=== PATIENT | male | born 1985 | race Caucasian/White ===

== ENCOUNTER 2018-05-23 08:20 | Day surgery (SDC) | payer OTHER ==
--- NOTE | 2018-05-20 11:12 | HP ---
PREOPERATIVE HISTORY AND PHYSICAL EXAM: DATE OF SURGERY/ADMISSION: 05/23/18 [facility] DATE OF OFFICE VISIT/ENCOUNTER: 05/14/18 ATTENDING SURGEON: Aleah Capone MD * (DICTATED BY CANDACE COSME) PROCEDURE: Right wrist ganglion excision. CHIEF COMPLAINT: Cyst, right wrist. 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 He complains of a painful lump on the dorsal aspect of his right wrist. It has been present for approximately 3 years. It has recently become more bothersome in the past 2 months. He did recently have the cyst aspirated, which was followed by a cortisone injection; however, the cyst returned very shortly after that. He is interested in now having it surgically removed. PAST MEDICAL HISTORY: POLLEN allergies. PAST SURGICAL HISTORY: [place] teeth extraction. CURRENT MEDICATIONS: 1. Fluticasone propionate 50 mcg 2 sprays each nostril daily. 2. Ibuprofen 200 mg as needed. ALLERGIES: WARFARIN, the patient reports a genetic predisposition of sensitivity. FAMILY MEDICAL HISTORY: Noncontributory. 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 He denies tobacco use. He does smoke marijuana on a rare occasion and drinks alcohol on occasional approximately once a week. REVIEW OF SYSTEMS: General: Negative for fevers, chills, night sweats, unexplained weight loss/gain. No known anesthesia problems in the past. HEENT : Negative for headache, lightheadedness, syncopal episodes, visual changes. Integumentary: Negative for abrasions, lesions, open wounds. Cardiothoracic: Negative for hypertension, chest pain, palpitations, edema. Respiratory: Negative for shortness of breath with exertion, chronic cough, wheezing. GI: Negative for nausea, vomiting, diarrhea, constipation, GERD. : Negative for nocturia, urinary frequency, urgency, history of UTIs, kidney problems. Musculoskeletal: Positive for current complaint. Negative for chronic or intermittent back pain or history of fractures. Neurological: Negative for paresthesias, numbness, history of seizure, stroke, or poor balance. Endocrine : Negative for diabetes and thyroid issues. Hematologic: Negative for easy bruising, anemia, bleeding disorders, history of DVT. Infectious Disease: Negative for history of MRSA, hepatitis C, HIV. PHYSICAL EXAMINATION GENERAL: Well-developed, well-nourished 32-year-old male, in no acute distress. VITAL SIGNS: Height 5 feet 6 inches, weight 136 pounds, pulse rate 80, blood pressure 128/74. HEENT: Normocephalic, atraumatic. Pupils are equal, round, and reactive to light and accommodation. Throat is clear. NECK: Supple. No palpable lymph nodes. PULMONARY: Lungs are clear to auscultation bilaterally. No wheezes, rales, or rhonchi. CARDIOVASCULAR: Regular rate and rhythm. S1, S2. No murmurs, rubs, or gallops. No edema. ABDOMEN: Positive bowel sounds. Soft, nontender. MUSCULOSKELETAL: On exam of his right wrist, he has a 1 cm diameter mass on the dorsal aspect of the right radiocarpal joint. It is mildly tender to palpation. He has full range of motion of the wrist. Skin is intact. Neurovascular function is intact. NEUROLOGIC: Alert and oriented x3. Cranial nerves II through XII are intact. Sensation is intact to light touch. DIAGNOSTIC STUDIES: X-rays of the right wrist AP, lateral, and oblique appear normal. IMPRESSION: Right wrist dorsal ganglion cyst. PLAN: The patient is scheduled to undergo a right wrist ganglion cyst excision with Dr. Capone on 05/23/18. He will return to the office in days postop for followup and suture removal. A prescription for Ultracet was e-scribed to the patient's pharmacy for postoperative pain management. CANDACE COSME [id number]/[facility] #: [id number] KENIA
[~2018-05-23 08:20] MED LIST: Lidocaine 1% INJ* 10 MG/ML 30 ML SDV ONE
[2018-05-23] MEDS ORDERED: fentaNYL* 50 MCG/ML 2 ML VIAL (100 MCG VIAL) ONE (09:04)
[2018-05-23] MEDS ORDERED: Midazolam* 1 MG/ML 5 ML VIAL (5 MG) ONE (09:04)
[2018-05-23] MEDS ORDERED: Naloxone* 0.4 MG/ML 1 ML VIAL IV PRN (10:25)
[2018-05-23] MEDS ORDERED: DiMENhydriNATE IV* 50 MG/ML VIAL IV PUSH PRN (10:25)
[2018-05-23] MEDS ORDERED: Acetaminophen TAB* 325 MG PO PRN (10:25)
[2018-05-23] MEDS ORDERED: Ketorolac INJ* 30 MG/ML 1 ML VIAL ONE (10:48)
[2018-05-23] MEDS ORDERED: Lidocaine 2% PF * 5 ML VIAL ONE (10:48)
[2018-05-23] MEDS ORDERED: Ondansetron INJ* 2 MG/ML VIAL ONE (10:48)
[2018-05-23] MEDS ORDERED: Propofol* 10 MG/ML 20 ML BTL IV PUSH ONE (10:48)
[2018-05-23 12:09] VITALS: BP 105/70
--- NOTE | 2018-05-24 03:56 | OP ---
ADDENDUM NOW INCLUDED ON THIS REPORT DATE OF OPERATION: 05/23/18 - [facility] DATE OF : [birth year] SURGEON: Aleah Capone MD MANAGER OF HUMAN RESOURCES: CANDACE Demarco ANESTHESIA: Local MAC. PRE-OP DIAGNOSIS: Right dorsal wrist ganglion. POST-OP DIAGNOSIS: Right dorsal wrist ganglion. OPERATIVE PROCEDURE: Right dorsal wrist ganglion excision. ESTIMATED BLOOD LOSS: Zero. TOURNIQUET TIME: Approximately 10 minutes. INDICATIONS FOR PROCEDURE: Miles is a 32-year-old male with a painful mass over the dorsal aspect of his right wrist. The mass was aspirated and injected with cortisone for surgical excision. DESCRIPTION OF PROCEDURE: The patient was brought to the operating room, was given a sedation anesthetic and a local infiltration of 10 cc of 1% plain lidocaine overlying the right wrist mass. The skin of his right hand and forearm was prepped and draped in the usual sterile fashion. The hand and forearm were exsanguinated and the tourniquet elevated to 250 mmHg. A transverse incision was made centered over the mass and dissected bluntly through the subcutaneous tissue into the ganglion cyst, which was emanated from the bursa with emanating from the scapholunate ligament. dorsal aspect of the scapholunate ligament and the mass was sent to Pathology. The wound was irrigated and the skin edges were reapproximated with 4-0 nylon suture. The wound was dressed with Xeroform, 4x4, Webril, and an Eduardo wrap. The patient tolerated the procedure well and was brought to the recovery room in good condition. ADDENDUM: DATE OF OPERATION: 05/23/18 DATE OF : [birth year] The first blank should read: The mass was aspirated and injected with cortisone , but has recurred, and he now presents for surgical excision. The second blank: A transverse incision was made centered over the mass and dissected bluntly through the subcutaneous tissue into the ganglion cyst, which was emanating from the dorsal, radial carpal joint and from the scapholunate ligament. Next blank: The dorsal aspect of the scapholunate ligament was cauterized with the Bovie and the mass was sent for pathology. The mass was excised with a small portion of the wrist joint capsule. [id number]/[facility] #: [id number]/[facility] #: [id number] KENIA
--- NOTE | 2018-05-27 16:59 | OP ---
CC: Dr. Capone OPERATIVE REPORT: ADDENDUM: DATE OF OPERATION: 05/23/18 DATE OF : [birth year] The first blank should read the mass was aspirated and injected with cortisone, but has recurred, and he now presents for surgical excision. The second blank, a transverse incision was made centered over the mass and dissected bluntly through the subcutaneous tissue into the ganglion cyst, which was emanating from the dorsal, radial carpal joint and from the scapholunate ligament. Next blank, the dorsal aspect of the scapholunate ligament was cauterized with the Bovie and the mass was sent for pathology. The mass was excised with a small portion of the wrist joint capsule. [id number]/[facility] #: [id number] [facility] HOSPITALChris
== END 2018-05-23 11:41 | disposition home or self-care (01) ==
LOC: OREAST 08:20
PROVIDERS: ATTEND Orthopaedic Surgery
DX: M67.431 Ganglion, right wrist (principal); J30.2 Other seasonal allergic rhinitis
CPT/HCPCS: 88304; J1885; J2250; J2405; J2704; J3010

== ENCOUNTER 2019-06-21 17:05 | Emergency (ER) | payer OTHER ==
[2019-06-21 17:23] VITALS: BP 121/75
[2019-06-21] MEDS ORDERED: Lidocaine 1% MPF ** 5 ML VIAL INJ ONE (17:30)
--- NOTE | 2019-06-21 17:37 | UC ---
Laceration HPI - HPI Summary HPI Summary: cut R 4th and 5th fingers on glass bottle 15min ago, fingers bleeding - History Of Current Complaint Chief Complaint: UCLaceration Stated Complaint: RT FINGER LACS Time Seen by Provider: 06/21/19 17:30 Hx Obtained From: Patient Laceration Location: Finger - palm side R 4th & 5th fingers Mechanism Of Injury: Sharp Trauma Onset/Duration: Sudden Onset Severity: Mild Pain Intensity: 2 Aggravating Factors: Movement Hands: 1 - laceration 2 - laceration Related History: Dominant Hand Right - Allergies/Home Medications Allergies/Adverse Reactions: Allergies Allergy/AdvReac Type Severity Reaction Status Date / Time warfarin AdvReac Bleeding Verified 06/21/19 17:23 Seasonl allergies Allergy Intermediate Headache Uncoded 06/21/19 17:23 Home Medications: Home Medications NK [No Home Medications Reported] 06/21/19 [History Confirmed 06/21/19] PMH/Surg Hx/FS Hx/Imm Hx Previously Healthy: Yes - Surgical History Surgical History: Yes Surgery Procedure, Year, and Place: [place] teeth extractions 2009. wrist right 2018- cyst - Family History Known Family History: Positive: None - Social History Occupation: Employed Full-time Lives: Dormitory/Roommates Alcohol Use: Occasionally Substance Use Type: None Substance Use Comment - Amount & Last Used: Occasional use Smoking Status (MU): Former Smoker Have You Smoked in the Last Year: No Review of Systems All Other Systems Reviewed And Are Negative: Yes Constitutional: Positive: Negative Respiratory: Positive: Negative Cardiovascular: Positive: Negative Musculoskeletal: Positive: Negative. Negative: Decreased ROM Neurological: Positive: Negative Psychological: Positive: Negative Is Patient Immunocompromised?: No Physical Exam Triage Information Reviewed: Yes Appearance: Well-Appearing, No Pain Distress, Well-Nourished Vital Signs: Initial Vital Signs Temp 99.5 F 06/21/19 17:20 Pulse 92 06/21/19 17:20 Resp 18 06/21/19 17:20 BP 121/75 06/21/19 17:20 Pulse Ox 98 06/21/19 17:20 Vital Signs Reviewed: Yes Respiratory Exam: Normal Respiratory: Positive: Lungs clear Cardiovascular Exam: Normal Cardiovascular: Positive: RRR Musculoskeletal Exam: Normal Musculoskeletal: Positive: Strength Intact, ROM Intact Neurological Exam: Normal Neurological: Positive: Other: - sensation grossly intact to affected fingers Psychological Exam: Normal Skin Exam: Other - 2 1cm linear lacerations R 4th and 5th finger Laceration Repair - Laceration Repair 1 Description: Linear Laceration Size After Repair: Length (cm) - 1cm, Width (mm) - 3mm, Depth (mm) - 3mm Modified For Repair: No Type Injection: Local Anesthesia Used: 1.0% Lido Irrigation With Pressure Irrigation Device: Yes Closure Material: Sutures - 4 4.) ethilon sutures Closure Method: Single Layer Suture Of: Skin Suture Type: Nylon 2 Description: Linear Laceration Size After Repair: Length (cm) - 1cm, Width (mm) - 3mm, Depth (mm) - 3mm Modified For Repair: No Type Injection: Local Anesthesia Used: 1.0% Lido Irrigation With Pressure Irrigation Device: Yes Closure Material: Sutures - 4 4.0 sutures placed Closure Method: Single Layer Suture Of: Skin Suture Type: Nylon Laceration Course/Dx - Differential Dx - Laceration/Wound Differental Diagnoses: Avulsion, Laceration, Puncture Wound - Diagnosis Provider Diagnosis: Laceration Discharge ED - Sign-Out/Discharge Documenting (check all that apply): Patient Departure All imaging exams completed and their final reports reviewed: No Studies - Discharge Plan Condition: Good Disposition: HOME Patient Education Materials: Laceration (ED), Care For Your Stitches (DC) Referrals: No Primary Care Phys,NOPCP [Primary Care Provider] - Additional Instructions: keep wounds clean and dry and elevate hand as much as possible (for next 48hours ) leave current dressing on for 24h apply thin layer of antibiotic ointment and bandaid every day use ibuprofen 400-600mg every 6 hours as needed for pain have sutures removed in 7-10 days - Billing Disposition and Condition Condition: GOOD Disposition: Home
== END 2019-06-21 18:21 | disposition home or self-care (01) ==
LOC: UCEAST 17:05
DX: S61.214A Laceration without foreign body of right ring finger without damage to nail, initial encounter (principal); S61.216A Laceration without foreign body of right little finger without damage to nail, initial encounter; W25.XXXA Contact with sharp glass, initial encounter; Y92.9 Unspecified place or not applicable; Z87.891 Personal history of nicotine dependence
CPT/HCPCS: 12001; 99211; G0463